=== PATIENT | female | born 1980 | race Caucasian/White ===

== ENCOUNTER → 2016-06-25 11:28 | Day surgery (SDC) | payer BC ==
[~2016-06-25 11:28] MED LIST: Buffered Lidocaine 1% SYRIN* 3 ML/SYR SYRINGE INTRADERM ONE; Bupivacaine 0.5% W/EPI SDV* 30 ML VIAL ONE; Dexamethasone IV* 4 MG/ML 1 ML (4 MG) IV SLOW PU ONE; Dexamethasone IV* 4 MG/ML 1 ML (4 MG) ONE; DiMENhydriNATE IV* 50 MG/ML VIAL IV PUSH PRN; EPHEDrine (Pressors)* 50 MG/ML VIAL ONE; Famotidine IV* 10 MG/ML 2 ML (20 mg) IV ONE; Famotidine IV* 10 MG/ML 2 ML (20 mg) ONE; Ketorolac INJ* 30 MG/ML 1 ML VIAL ONE; Lidocaine 1% INJ* 10 MG/ML 30 ML SDV ONE; Midazolam* 1 MG/ML 5 ML VIAL (5 MG) ONE; Ondansetron INJ* 2 MG/ML VIAL IV PRN; Ondansetron INJ* 2 MG/ML VIAL ONE; Propofol* 10 MG/ML 20 ML BTL IV PUSH ONE; ceFAZolin 2 GM PREMIX(*) 2 GM/50 ML BAG IVPB ONE; fentaNYL* 50 MCG/ML 2 ML VIAL (100 MCG VIAL) IV PRN; fentaNYL* 50 MCG/ML 2 ML VIAL (100 MCG VIAL) ONE; oxyCODONE/Acetamin 5/325 MG* TAB PO PRN
[2016-06-25 11:32] LABS: UR Preg Internal Control QC Line Present
[2016-06-25 11:33] LABS: Manual Entry Verification LAB-NR
[2016-06-25 13:33] VITALS: BP 134/72
--- NOTE | 2016-06-26 15:54 | OP ---
DATE OF OPERATION: 06/25/16 - SDS DATE OF : 84 SURGEON: Rui Lizama MD VP PACKAGING: RANDOLPH Tena ANESTHESIOLOGIST: Vishal Mabry MD ANESTHESIA: Local MAC. PRE-OP DIAGNOSIS: Incarcerated umbilical hernia. POST-OP DIAGNOSIS: Incarcerated umbilical hernia. OPERATIVE PROCEDURE: Open reduction and repair of an incarcerated umbilical hernia. ESTIMATED BLOOD LOSS: Minimal. IV FLUIDS: Crystalloid. SPECIMEN: None. DRAINS: None. COMPLICATIONS: None. COUNT: The instrument, needle, and sponge counts were correct. DESCRIPTION OF PROCEDURE: The patient was brought to the operating room and placed on the table supine. Sequential compression devices were placed on both lower extremities. Intravenous sedation was administered. She was prepped and draped in the usual sterile fashion. Time-out was performed. Local anesthetic was infiltrated periumbilically and a curvilinear infraumbilical incision was created. Using a combination of sharp and blunt dissection, the umbilical hernia sac was dissected out and the sac was open, there was incarcerated omental fat, a small portion of which was necrotic, and this was amputated and the remaining viable omentum was reduced into the peritoneal cavity. The umbilical hernia defect was small, less than 1 cm, and it was closed readily with an 0 Ti-Cron suture in a iteffd-fm-gyzto fashion. The umbilical stalk was reapproximated to the anterior fascia with a 3-0 Polysorb and then the skin was closed with 4-0 Monocryl in a subcuticular fashion. Steri-Strips were applied. The patient tolerated the procedure well and was awakened and transferred to the recovery room in stable condition. CC: Martin Christianson MD* [id number]/[facility] #: [id number] KRISHNA
== END | disposition home or self-care (01) ==
LOC: OR 11:28
PROVIDERS: ATTEND Surgery
DX: K42.0 Umbilical hernia with obstruction, without gangrene (principal); I34.1 Nonrheumatic mitral (valve) prolapse; R00.2 Palpitations
CPT/HCPCS: 81025; J0690; J1100; J1885; J2001; J2250; J2405; J2704; J3010